=== PATIENT | female | born 1950 ===

== ENCOUNTER 2022-07-21 07:09 | Day surgery (SDC) | payer OTHER | END 2022-07-21 13:25 | disposition home or self-care (01) | LOC: AMB-ENDOS 07:09 | PROVIDERS: ATTEND Colon & Rectal Surgery | DX: D12.0 Benign neoplasm of cecum (principal); D12.5 Benign neoplasm of sigmoid colon; D12.3 Benign neoplasm of transverse colon; K64.8 Other hemorrhoids; Z20.822 Contact with and (suspected) exposure to COVID-19 ==

== ENCOUNTER 2022-10-13 07:40 | Day surgery (SDC) | payer OTHER | END 2022-10-13 14:00 | disposition home or self-care (01) | LOC: AMB-ENDOS 07:40 | PROVIDERS: ATTEND Colon & Rectal Surgery | DX: D12.4 Benign neoplasm of descending colon (principal); D12.3 Benign neoplasm of transverse colon; Z20.822 Contact with and (suspected) exposure to COVID-19; K57.30 Diverticulosis of large intestine without perforation or abscess without bleeding; Z88.0 Allergy status to penicillin ==

== ENCOUNTER 2023-05-25 08:45 | Day surgery (SDC) | payer OTHER | END 2023-05-25 16:15 | disposition home or self-care (01) | LOC: AMB-ENDOS 08:45 | PROVIDERS: ATTEND Colon & Rectal Surgery | DX: D12.4 Benign neoplasm of descending colon (principal); D12.3 Benign neoplasm of transverse colon; K57.32 Diverticulitis of large intestine without perforation or abscess without bleeding; K57.30 Diverticulosis of large intestine without perforation or abscess without bleeding; Z88.0 Allergy status to penicillin; Z20.822 Contact with and (suspected) exposure to COVID-19 ==